=== PATIENT | female | born 1980 ===

== ENCOUNTER 2018-01-24 18:56 | Emergency (ER) | payer SELFPAY ==
[2018-01-24 18:57] VITALS: BMI 28.8
[2018-01-24 20:04] LABS: SQUAMOUS EPITHIAL 1 /hpf (0-5); URINE BACTERIA OCC (<OCC); URINE BILIRUBIN NEGATIVE (NEGATIVE); URINE CLARITY Clear (Clear); URINE COLOR Straw (YELLOW); URINE GLUCOSE (UA) NORMAL (Normal); URINE LEUKOCYTE ESTERASE NEG Leu/uL (Negative); URINE PROTEIN NEGATIVE (NEGATIVE); URINE UROBILINOGEN NORMAL mg/dL (0.2-1.0)
[2018-01-24 20:05] LABS: HCG,QUALITATIVE URINE POSITIVE (NEGATIVE)
[2018-01-24 20:11] LABS: URINE BLOOD TRACE-LYSED (NEGATIVE)
[2018-01-24] MEDS ORDERED: Sodium Chloride 0.9% 1,000 ML IV ONE (20:20)
--- NOTE | 2018-01-24 20:24 | C.PDOC ---
History Of Present Illness 37 year old female presents to the ED c/o abdominal pain for the past 3 days. Patient states her pain is mostly lower abdominal area. Patient denies fever, chills, nausea, vomit, diarrhea, dysuria, hematuria. Chief Complaint (Nursing): Abdominal Pain History Per: Patient History/Exam Limitations: no limitations Onset/Duration Of Symptoms: Days Current Symptoms Are (Timing): Still Present Location Of Pain/Discomfort: RLQ, LLQ Radiation Of Pain To:: None Quality Of Discomfort: "Pain" Associated Symptoms: denies: Nausea, Vomiting, Diarrhea, Loss Of Appetite, Urinary Symptoms Exacerbating Factors: None Alleviating Factors: None Recent travel outside of the [place]: No Additional History Per: Patient Abnormal Vaginal Bleeding: No Past Medical History Reviewed: Historical Data, Nursing Documentation, Vital Signs Vital Signs: Last Vital Signs Temp 98.5 F 01/24/18 19:09 Pulse 66 01/24/18 19:09 Resp 18 01/24/18 19:09 BP 117/71 01/24/18 19:09 Pulse Ox 100 01/24/18 19:09 - Medical History PMH: No Chronic Diseases Denies: Chronic Kidney Disease Surgical History: No Surg Hx Family History: States: Unknown Family Hx - Social History Hx Alcohol Use: No Hx Substance Use: No - Immunization History Hx Tetanus Toxoid Vaccination: No Hx Influenza Vaccination: No Hx Pneumococcal Vaccination: No Review Of Systems Constitutional: Negative for: Fever, Chills Cardiovascular: Negative for: Chest Pain Respiratory: Negative for: Shortness of Breath Gastrointestinal: Positive for: Abdominal Pain. Negative for: Nausea, Vomiting Genitourinary: Negative for: Dysuria, Hematuria Skin: Negative for: Rash Neurological: Negative for: Weakness, Numbness Physical Exam - Physical Exam Appears: Non-toxic, In Acute Distress (due to pain) Skin: Normal Color, Warm, Dry Head: Atraumatic, Normacephalic Eye(s): bilateral: Normal Inspection Neck: Normal ROM, Supple Chest: Symmetrical Cardiovascular: Rhythm Regular Respiratory: Normal Breath Sounds, No Rales, No Rhonchi, No Wheezing Gastrointestinal/Abdominal: Soft, Tenderness (B/L lower quadrant ), No Guarding, No Rebound Extremity: Normal ROM, No Tenderness, No Swelling Neurological/Psych: Oriented x3, Normal Speech, Normal Cognition Gait: Steady ED Course And Treatment - Laboratory Results Result Diagrams: 01/24/18 20:29 01/24/18 20:29 O2 Sat by Pulse Oximetry: 100 (ON RA) Pulse Ox Interpretation: Normal - CT Scan/US Pelvic US Other Rad Studies (CT/US): Read By Radiologist, Radiology Report Reviewed CT/US Interpretation: Clinical history: Pain. Findings: Real-time transabdominal and transvaginal ultrasound images of the pelvis were obtained. An anteverted uterus is noted, measuring 9.4 x 5.2 x 6.2 cm. The uterus demonstrates normal echotexture and echogenicity. The endometrial stripe measures 18 mm. There is a very small anechoic structure within the endometrial canal which could represent early intrauterine gestational sac. The mean sac diameter measures 0.64 cm. There is no evidence of a pole or yolk sac at t his time. There is no evidence of an intrauterine . The right ovary measures 3.2 x 2.3 x 2.2 cm. The left ovary measures 2.4 x 1.4 x 2.7 cm. No adnexal masses are seen. Color Doppler flow is seen within both ovaries. There is no evidence of free fluid. Impression: 1. Tiny sac like structure in the endometrial canal with a mean sac diameter of 0.64 cm. No discrete definitive pole or yolk sac is seen at this time. This could represent a very early intrauterine gestation. However, differential diagnosis still includes early , missed , or ectopic . Follow-up with serial serum beta hCG levels is recommended for further evaluation. . Electronically signed on Jan 25, 2018 12:12:38 AM EDT by: Edgar Perez M.D., Certified by ABR, MSK, Neuroradiology Medical Decision Making Medical Decision Making: Plan: * Labs * IV fluids * UA * Pelvic US Disposition Counseled Patient/Family Regarding: Diagnosis - Disposition Referrals: [facility] [Outside] Disposition: HOME/ ROUTINE Disposition Time: 00:16 Condition: STABLE Instructions: Round Ligament Pain, Medications and Forms: [facility] (Anguillan), Gen Discharge Inst Ukrainian Print Language: OCCITAN - POA Present On Arrival: None - Clinical Impression Clinical Impression: , Round ligament pain - Scribe Statement The provider has reviewed the documentation as recorded by the Scribe Braulio Goldstein All medical record entries made by the Scribe were at my direction and personally dictated by me. I have reviewed the chart and agree that the record accurately reflects my personal performance of the history, physical exam, medical decision making, and the department course for this patient. I have also personally directed, reviewed, and agree with the discharge instructions and disposition.
[2018-01-24 20:32] LABS: BASO % 0.3 % (0.0-2.0); EOS # 0.1 K/uL (0.0-0.7); EOS % 0.9 % (0.0-4.0); HEMOGLOBIN 12.7 g/dL (11.0-16.0); LYMPH # 1.2 K/uL (1.0-4.3); LYMPH % 19.5 % (20.0-40.0); MEAN CORPUSCULAR HEMOGLOBIN 30.3 pg (27.0-31.0); MEAN CORPUSCULAR HGB CONC 34.4 g/dL (33.0-37.0); MEAN PLATELET VOLUME 9.4 fL (7.2-11.7); MONO # 0.4 K/uL (0.0-0.8); MONO % 6.7 % (0.0-10.0); NEUT # 4.6 K/uL (1.8-7.0); NEUT % 72.6 % (50.0-75.0); RBC 4.18 Mil/uL (3.80-5.20); RED CELL DISTRIBUTION WIDTH 13.3 % (11.5-14.5); WHITE BLOOD COUNT 6.3 K/uL (4.8-10.8)
[2018-01-24 20:48] LABS: ALB/GLOB RATIO 1.6 (1.0-2.1); ALBUMIN 4.2 g/dL (3.5-5.0); ALT/SGPT 26 U/L (9-52); AST/SGOT 17 U/L (14-36); BLOOD UREA NITROGEN 9 mg/dL (7-17); CALCIUM 9.1 mg/dl (8.6-10.4); GFR NON-AFRICAN AMERICAN > 60; LIPASE 82 U/L (23-300)
[2018-01-25 01:08] VITALS: BP 126/82; PULSE 88; RESP 20; TEMP 98; O2SAT 97
--- NOTE | 2018-01-25 10:51 | US ---
Pelvic ultrasound HISTORY: Pelvic pain. Comparison: None available. Technique: Real-time sonography was performed through the pelvis utilizing transabdominal and transvaginal techniques. Findings: status pending. LMP of 12/18/2017. Estimated gestational age by LMP of 5 weeks and 2 days. Uterus: 9.4 x 5.2 x 6.2 centimeters. Heterogeneous echotexture. Anteverted. Endometrial thickness measures 1.8 centimeters. Very small anechoic structure within the endometrial canal. This is of uncertain clinical etiology and may represent an early intrauterine gestational sac. Mean sac diameter measures 0.64 centimeters. No evidence of a pole or yolk sac at this time. No free fluid in the pelvic cul-de-sac. Right ovary: 3.2 x 2.2 x 2.2 centimeters. Normal flow. Left ovary: 2.4 x 1.4 x 2.7 centimeters. Normal flow. Impression: Small sac-like structure in the endometrial canal with a mean sac diameter of 6.4 millimeters. No discrete definitive pole or yolk sac is seen at this time. In the setting of a positive test, this may represent an early intrauterine gestation. However, differential diagnosis still includes early versus missed versus ectopic . Follow-up with serial beta HCG levels is recommended for further evaluation. These findings were preliminarily reported at 12:12 a.m. on 01/25/[address] Edgar Perez from [employer].
== END 2018-01-25 00:45 | disposition home or self-care (01) ==
LOC: C.ER 18:56
DX: O26.891 Other specified pregnancy related conditions, first trimester (principal); Z3A.00 Weeks of gestation of pregnancy not specified; R10.2 Pelvic and perineal pain
CPT/HCPCS: 76830; 76856; 80053; 81001; 83690; 84702; 84703; 85025; 99282; J7030

== ENCOUNTER 2018-02-05 15:59 | Emergency (ER) | payer SELFPAY ==
[2018-02-05 15:59] VITALS: BMI 28.8
[2018-02-05 17:40] LABS: HCG,QUALITATIVE URINE POSITIVE (NEGATIVE)
--- NOTE | 2018-02-05 17:59 | C.PDOC ---
Addendum entered and electronically signed by Lia Bueno MD 02/05/18 20:38: Disposition Counseled Patient/Family Regarding: Studies Performed, Diagnosis, Need For Followup Clinical Impression: Threatened , Subchorionic hemorrhage Disposition: HOME/ ROUTINE Disposition Time: 19:00 Condition: FAIR Additional Instructions: Please return if symptoms recur Instructions: Threatened Miscarriage (DC) Referrals: [facility] [Outside] Stand Alone Forms: [employer] (Faroese) Original Note: History Of Present Illness 38 y/o female, 7-8 weeks , LMP: "in November", presents to ED for evaluation of vaginal spotting for the last 2 weeks. Pt states she developed lower abdominal cramping today. Pt was evaluated in the ED about 2 weeks ago for similar symptoms. Ultrasound at that time did not identify IUP. Notes she has not followed up with OBGYN since the previous visit. Denies any blood clots, notes she noticed spotting only when wiping. Otherwise, nausea, vomiting, back pain, urinary symptoms, or other vaginal discharge. <Princess Aguillon - Last Filed: 02/06/18 15:48> <Lia Beuno - Last Filed: 02/05/18 20:37> History Per: Patient History/Exam Limitations: no limitations Onset/Duration Of Symptoms: Days Current Symptoms Are (Timing): Still Present Location Of Pain/Discomfort: Suprapubic Radiation Of Pain To:: None Quality Of Discomfort: "Pain" Exacerbating Factors: None Recent travel outside of the [place]: No Additional History Per: Patient <Princess Aguillon - Last Filed: 02/06/18 15:48> Time Seen by Provider: 02/05/18 17:36 Chief Complaint (Nursing): Abdominal Pain Past Medical History Vital Signs: Last Vital Signs Temp 98.4 F 02/05/18 16:05 Pulse 60 02/05/18 16:05 Resp 18 02/05/18 16:05 BP 111/73 02/05/18 16:05 Pulse Ox 100 02/05/18 18:09 <Lia Bueno - Last Filed: 02/05/18 20:37> Reviewed: Historical Data, Nursing Documentation, Vital Signs Vital Signs: Last Vital Signs Temp 98.4 F 02/05/18 16:05 Pulse 60 02/05/18 16:05 Resp 18 02/05/18 16:05 BP 111/73 02/05/18 16:05 Pulse Ox 100 02/05/18 16:05 - Medical History PMH: Denies: Chronic Kidney Disease Family History: States: Unknown Family Hx - Social History Hx Alcohol Use: No Hx Substance Use: No - Immunization History Hx Tetanus Toxoid Vaccination: Yes Hx Influenza Vaccination: No Hx Pneumococcal Vaccination: No <Princess Aguillon - Last Filed: 02/06/18 15:48> Review Of Systems Except As Marked, All Systems Reviewed And Found Negative. Constitutional: Negative for: Fever, Chills Gastrointestinal: Positive for: Abdominal Pain. Negative for: Nausea, Vomiting, Diarrhea, Constipation Genitourinary: Positive for: Vaginal Bleeding (spotting). Negative for: Dysuria, Frequency, Hematuria, Vaginal Discharge Musculoskeletal: Negative for: Back Pain <Princess Aguillon - Last Filed: 02/06/18 15:48> Physical Exam - Physical Exam Appears: Non-toxic, No Acute Distress Skin: Normal Color, Warm, Dry Head: Atraumatic, Normacephalic Eye(s): bilateral: Normal Inspection Oral Mucosa: Moist Neck: Normal ROM, Supple Chest: Symmetrical Cardiovascular: Rhythm Regular, No Murmur Respiratory: Normal Breath Sounds, No Rales, No Rhonchi, No Wheezing Gastrointestinal/Abdominal: Soft, Tenderness (minimal suprapubic), No Guarding, No Rebound Back: No CVA Tenderness Extremity: Normal ROM, No Pedal Edema Neurological/Psych: Oriented x3, Normal Speech <Princess Aguillon - Last Filed: 02/06/18 15:48> ED Course And Treatment - Laboratory Results Result Diagrams: 02/05/18 18:01 Pulse Ox Interpretation: Normal Reevaluation Time: 20:34 Reassessment Condition: Improved <Lia Bueno - Last Filed: 02/05/18 20:37> - Laboratory Results Result Diagrams: 02/05/18 18:01 O2 Sat by Pulse Oximetry: 100 (RA) Pulse Ox Interpretation: Normal - CT Scan/US OB pelvic u/s Other Rad Studies (CT/US): Read By Radiologist CT/US Interpretation: Indication: with vaginal spotting. Comparison: Pelvis/transvaginal ultrasound performed 01/24/18. Technique: Real-time transabdominal pelvic ultrasound was performed. In addition a transvaginal pelvic ultrasound was necessary to better depict pelvic anatomy. Findings: Uterus measures approximately 9.6 x 6.0 x 6.4 cm. Anteverted. Cervix length measures approximately 2.7 cm. There is a single intrauterine fetus present. 4 mm yolk sac. The gestational sac measures 1.8 cm and is compatible with a gestational age of 6 weeks 1 day. The crown-rump length measures 0.7 cm and is compatible with a gestational age of 6 weeks 4 days. Small probable subchorionic hemorrhage measures approximately 1.3 x 0.5 x 1.6 cm anterior to the gestational sac. There is heart motion which measured 146.3 BPM. The right ovary measures 3.0 x 2.2 x 2.6 cm and contains 2.3 x 1.6 x 1.9 cm probable corpus luteal cyst. The left ovary measures 2.7 x 1.4 x 2.6 cm. Blood flow was demonstrated to both ovaries. Impression: Live single intrauterine with estimated gestational age 6 weeks 1 day by gestational sac calculation and 6 weeks 4 days by crown-rump length calculation. heart rate 146.3 bpm. Small subchorionic hemorrhage measures approximately 1.3 x 0.5 x 1.6 cm. Advise an anomaly screen at 16-18 weeks gestational age. Preliminary impression was provided by [employer]. <Princess Aguillon - Last Filed: 02/06/18 15:48> Medical Decision Making Medical Decision Making: Upon provider reevaluation patient is feeling better, is medically stable, and requires no further treatment in the ED at this time. Patient will be discharged home . Counseling was provided and all questions were answered regarding diagnosis and need for follow up with the referred clinic. There is agreement to discharge plan. Return if symptoms persist or worsen. copies of the blood work and US given <Lia Bueno - Last Filed: 02/05/18 20:37> Medical Decision Making: Plan: * Blood work * Urinalysis * OB transvag US <Princess Aguillon - Last Filed: 02/06/18 15:48> Disposition Counseled Patient/Family Regarding: Studies Performed, Diagnosis, Need For Fol lowup - Disposition Disposition Time: 19:00 <Lia Bueno - Last Filed: 02/05/18 20:37> <Princess Aguillon - Last Filed: 02/06/18 15:48> - Disposition Referrals: [facility] [Outside] Disposition: HOME/ ROUTINE Condition: FAIR Additional Instructions: Please return if symptoms recur Instructions: Threatened Miscarriage (DC) Forms: [employer] [facility] (Faroese) - Clinical Impression Clinical Impression: Threatened , Subchorionic hemorrhage - Scribe Statement The provider has reviewed the documentation as recorded by the Scribe KP All medical record entries made by the Scribe were at my direction and personally dictated by me. I have reviewed the chart and agree that the record accurately reflects my personal performance of the history, physical exam, medi ambika decision making, and the department course for this patient. I have also personally directed, reviewed, and agree with the discharge instructions and disposition. <Princess Aguillon - Last Filed: 02/06/18 15:48>
[2018-02-05 18:03] LABS: SQUAMOUS EPITHIAL 3 /hpf (0-5); URINE AMORPHOUS SEDIMENT RARE /ul (<OCC); URINE BILIRUBIN NEGATIVE (NEGATIVE); URINE BLOOD 2+ (NEGATIVE); URINE CLARITY Hazy (Clear); URINE COLOR Yellow (YELLOW); URINE GLUCOSE (UA) NORMAL (Normal); URINE LEUKOCYTE ESTERASE TRACE Leu/uL (Negative); URINE PROTEIN NEGATIVE (NEGATIVE); URINE UROBILINOGEN NORMAL mg/dL (0.2-1.0)
[2018-02-05 18:04] LABS: HEMOGLOBIN 13.5 g/dL (11.0-16.0); MEAN CELL VOLUME 88.9 fL (81.0-99.0); MEAN CORPUSCULAR HEMOGLOBIN 30.2 pg (27.0-31.0); MEAN PLATELET VOLUME 9.6 fL (7.2-11.7); RBC 4.46 Mil/uL (3.80-5.20); RED CELL DISTRIBUTION WIDTH 13.6 % (11.5-14.5); WHITE BLOOD COUNT 8.3 K/uL (4.8-10.8)
[2018-02-05 20:47] VITALS: BP 121/68; PULSE 78; RESP 20; TEMP 98.6
--- NOTE | 2018-02-06 11:03 | US ---
Indication: with vaginal spotting Comparison: Pelvis/transvaginal ultrasound performed 01/24/18 Technique: Real-time transabdominal pelvic ultrasound was performed. In addition a transvaginal pelvic ultrasound was necessary to better depict pelvic anatomy. Findings: Uterus measures approximately 9.6 x 6.0 x 6.4 cm. Anteverted. Cervix length measures approximately 2.7 cm. There is a single intrauterine fetus present. 4 mm yolk sac. The gestational sac measures 1.8 cm and is compatible with a gestational age of 6 weeks 1 day. The crown-rump length measures 0.7 cm and is compatible with a gestational age of 6 weeks 4 days. Small probable subchorionic hemorrhage measures approximately 1.3 x 0.5 x 1.6 cm anterior to the gestational sac. There is heart motion which measured 146.3 BPM. The right ovary measures 3.0 x 2.2 x 2.6 cm and contains 2.3 x 1.6 x 1.9 cm probable corpus luteal cyst. The left ovary measures 2.7 x 1.4 x 2.6 cm. Blood flow was demonstrated to both ovaries. Impression: Live single intrauterine with estimated gestational age 6 weeks 1 day by gestational sac calculation and 6 weeks 4 days by crown-rump length calculation. heart rate 146.3 bpm. Small subchorionic hemorrhage measures approximately 1.3 x 0.5 x 1.6 cm. Advise an anomaly screen at 16-18 weeks gestational age Preliminary impression was provided by [employer].
[2018-02-06 15:48] VITALS: O2SAT 100
== END 2018-02-05 20:47 | disposition home or self-care (01) ==
LOC: C.ER 15:59
DX: O20.0 Threatened abortion (principal); Z3A.08 8 weeks gestation of pregnancy

== ENCOUNTER 2018-05-04 11:42 | Outpatient (CLI) | payer SELFPAY | END 2018-05-04 11:43 | disposition home or self-care (01) | LOC: C.LAB 11:42 | DX: Z34.82 Encounter for supervision of other normal pregnancy, second trimester (principal) ==

== ENCOUNTER 2018-08-24 14:12 | Outpatient (CLI) | payer SELFPAY | END 2018-08-24 14:13 | disposition home or self-care (01) | LOC: C.LAB 14:12 | DX: Z34.00 Encounter for supervision of normal first pregnancy, unspecified trimester (principal) ==

== ENCOUNTER 2018-09-17 07:12 | Inpatient (IN) | payer MEDICAID, SELFPAY ==
[2018-09-17 07:43] VITALS: BMI 31.8
[2018-09-17] MEDS ORDERED: Clindamycin 300 MG in Sodium Chloride 0.9% 50 ML IVPB STA (07:48)
[2018-09-17 08:27] LABS: BASO % 0.1 % (0.0-2.0); EOS % 0.8 % (0.0-4.0); HEMOGLOBIN 12.4 g/dL (11.0-16.0); LYMPH # 0.9 K/uL (1.0-4.3); MEAN CELL VOLUME 86.5 fL (81.0-99.0); MEAN CORPUSCULAR HEMOGLOBIN 29.2 pg (27.0-31.0); MEAN CORPUSCULAR HGB CONC 33.8 g/dL (33.0-37.0); MEAN PLATELET VOLUME 9.9 fL (7.2-11.7); MONO # 0.6 K/uL (0.0-0.8); MONO % 9.1 % (0.0-10.0); NEUT # 4.7 K/uL (1.8-7.0); NRBC % 0.1 % (0.0-2.0); RBC 4.24 Mil/uL (3.80-5.20); RED CELL DISTRIBUTION WIDTH 15.4 % (11.5-14.5); WHITE BLOOD COUNT 6.2 K/uL (4.8-10.8)
[2018-09-17] MEDS ORDERED: Lactated Ringer's 1,000 ML IV ONE (08:30)
[2018-09-17] MEDS ORDERED: Sodium Citrate/Citric Acid 15 ml Sol PO ONE (08:30)
[2018-09-17 08:36] LABS: ALB/GLOB RATIO 1.2 (1.0-2.1); ALBUMIN 3.2 g/dL (3.5-5.0); ALT/SGPT 12 U/L (9-52); AST/SGOT 32 U/L (14-36); BLOOD UREA NITROGEN 11 mg/dL (7-17); CALCIUM 8.3 mg/dl (8.6-10.4); GFR NON-AFRICAN AMERICAN > 60
[2018-09-17] MEDS ORDERED: Sodium Citrate/Citric Acid 15 ml Sol ONE (08:38)
[2018-09-17] MEDS ORDERED: cefOXitin IV 2 gm in Dextrose 0 GM/0 ML BAG IVPB ONE (08:38)
[2018-09-17] MEDS ORDERED: Oxytocin 10 Units/ml Inj ONE (08:53)
[2018-09-17] MEDS ORDERED: Oxytocin 20 units in LR 2,000 ML IV ONE (08:56)
[2018-09-17 09:02] LABS: SQUAMOUS EPITHIAL 5 /hpf (0-5); URINE BACTERIA RARE (<OCC); URINE BILIRUBIN NEGATIVE (NEGATIVE); URINE BLOOD NEGATIVE (NEGATIVE); URINE CLARITY Hazy (Clear); URINE COLOR Yellow (YELLOW); URINE GLUCOSE (UA) NORMAL (Normal); URINE LEUKOCYTE ESTERASE TRACE Leu/uL (Negative); URINE PROTEIN NEGATIVE (NEGATIVE); URINE UROBILINOGEN NORMAL mg/dL (0.2-1.0)
[2018-09-17] MEDS ORDERED: ePHEDrine 50 mg/ml Inj ONE ×2 (10:55→11:17)
[2018-09-17] MEDS ORDERED: Morphine 1 mg/ml preservative-free Inj(Duramorph) ONE (10:56)
--- NOTE | 2018-09-17 13:25 | PCM.SURG1 ---
Surgeon's Initial Post Op Note - Surgeon's Notes Surgeon: Juanita Borjas MD Network Systems Analyst: Chucky Carter MD. MS-3: Dwain Sexton Type of Anesthesia: Spinal Anesthesia Administered By: Ama Rose MD Pre-Operative Diagnosis: Breech presentation; Grand multiparity; Advanced maternal age; desires permanent sterilization Operative Findings: Live female , Kyle breech presentation, LSA position, 8lb 11oz, 's 9/9. Cord pH (venous) 7.23, base XS -2.4. Normal uterus, normal ovaries and fallopian tubes, bilaterally Post-Operative Diagnosis: Same; S/P permanent sterilization Operation Performed: Primary C/S; bilateral salpingectomy (complete) Specimen/Specimens Removed: Right and left fallopian tubes Estimated Blood Loss: EBL {In ML}: 800 (U.O. 800 mL; IVFs 2,000 mL. Pitocin 40 units in 1st Litre) Blood Products Given: N/A Drains Used: No Drains Post-Op Condition: Good Date of Surgery/Procedure: 09/17/18 Time of Surgery/Procedure: 13:27
[2018-09-17] MEDS ORDERED: Oxycodone/Acetaminophen 5/325 mg Tab PO PRN (16:42)
--- NOTE | 2018-09-17 17:12 | OBDS ---
DELIVERY PERSONNEL Delivery Doctor: Maggie Borjas MD Scrub Nurse: Devi Pérez Dietitian Consultant: Ashleigh Cazares RN Anesthesiologist: Alejandro Rose MD Resident: Gerald Sexton MATERNAL INFORMATION Delivery Anesthesia: Spinal Medications in Delivery: pitocin 20 units in 1000 mls of LR+40 units added by anesthesia Estimated Blood Loss (ml): 800 Maternal Complications: None RN Comments: unveventful delivery of 38.3 weeks IUP in confirmed breech presentation, via primary c/ s, to a viable baby girl with apgars 9-9. surgicel original also used during procedure Provider Comments: Uneventful primary LTCS with Breech extraction, for Kyle Breech delivery; live f emale , LSA position. Grossly normal placenta; 3 vessel cord Bilateral complete salpingectomy performed for permanent sterilizaiton. Routine abdominal closure Hemostasis assured. Skin reapporoximated with 4-0 monocryl in subcuticular fashion. patient tolerated procedure well Taken back to LDR#2 in stable condition EBL 800mL U.O. 800 mL IVFs 2,000 mL LABOR SUMMARY EDC: 09/28/2018 00:00 No. Babies in Womb: 1 Attempted: No Labor Anesthesia: Intrathecal LABOR INFORMATION Reason for Induction: Not Applicable Oxytocin: N/A Group B Beta Strep: Negative Steroids Given: None Reason Steroids Not Administered: Not Applicable MEMBRANES Membranes Rupture Method: Artificial Rupture of Membranes: 09/17/2018 11:27 Length of Rupture (hrs): 0.02 Amniotic Fluid Color: Clear Amniotic Fluid Amount: Moderate Amniotic Fluid Odor: Normal STAGES OF LABOR Stage 3 hrs: 0 Stage 3 min: 1 BABY A INFORMATION Infant Delivery Date/Time: 09/17/2018 11:28 Method of Delivery: Born in Route : No : N/A Forceps: N/A Vacuum Extraction: N/A Shoulder Dystocia : No SHOULDER DYSTOCIA BABY A Infant Delivery Date/Time: 09/17/2018 11:28 PRESENTATION/POSITION BABY A Presentation: Breech Cephalic Presentation: N/A Vertex Position: n/a Breech Presentation: Kyle LSA PLACENTA INFORMATION BABY A Placenta Delivery Time : 09/17/2018 11:29 Placenta Method of Delivery: Manual Removal Placenta Status: Delivered SCORES BABY A Heart Rate 1 min: >100 bpm Resp Effort 1 min: Good Cry Reflex Irritability 1 min: Cough or Sneeze or Pulls Away Muscle Tone 1 min: Active Motion Color 1 min: Body Warba, Extremities Blue Resuscitation Effort 1 min: Tactile Stimulation SCORE 1 MIN: 9 Heart Rate 5 min: >100 bpm Resp Effort 5 min: Good Cry Reflex Irritability 5 min: Cough or Sneeze or Pulls Away Muscle Tone 5 min: Active Motion Color 5 min: Body Warba, Extremities Blue Resuscitation Effort 5 min: N/A SCORE 5 MIN: 9 INFORMATION BABY A Gestational Age at Delivery: 38.3 Gestational Status: Term Infant Outcome : Liveborn Condition : Stable Sex: Female IDENTIFICATION/MEDS BABY A ID Band Number: [id number] ID Band Location: Left Leg; Left Arm Sensor Applied: Yes Sensor Number: [id number] Sensor Location : Cord Clamp WEIGHT/LENGTH BABY A Infant Birthweight (gms): 3930 Weight (lb): 8 Weight (oz): 11 Infant Length Inches: 19.75 Infant Length cms: 50.2 CORD INFORMATION BABY A No. Cord Vessels: 3 Nuchal Cord : Around Neck x1, Loose Nuchal Cord Other: n/a Cord pH Baby Arterial: 7.30 Infant Cord pH Baby Venous: 7.23 Cord Blood Taken: Yes Infant Suction: Mouth; Nose
[2018-09-17] MEDS: Simethicone 80 mg Chewtab PO SCH ×2 (18:03→22:45)
--- NOTE | 2018-09-17 21:26 | OBADHP ---
Datetime: 09/17/2018 08:20 Admit Comment, IP Provider: Patient is a 38 year old female at 39wks gestation with ULISSES 09/24 BY 12 weeks and 5 days US (03/17/2018) and LMP (12/18/18), presenting for scheduled due to breech presentation. Her last doctor visit was 3 days ago, which is when she was told to go to the hospital for . She states she feels movement, has minor cramping pain, and started fe eling occasional contractions 1 month ago, which are now 3-4 times a day. She has complaints of spott ing of "white liquid". She urinates 3-4 times a day and has 5-6 bottles of water a day. She states sh e had vaginal bleeding in the first 3 months of gestation, for which she was seen in [facility] twice. She denies any vaginal bleeding and leakage of fluid currently, and denies any other complicat ions during the course. Of note, [place] the [place] [facility] about 3 years ago. OBHx: 5 other children, all female, by G1: Female , , 8.5lbs, 09/18/1995, complications G2: Female , , 7.5lbs, 03/03/1997, complications G3: Female , , 9lBS, 07/09/1999, complications G4: Female , , 8lbs, 06/26/2001, complications G5: Female , , 9lbs, 09/08/2003, complications G6: Current, no complications - 5 other children were born in [facility] - oldest child 23y.o and youngest is 15y.o. - smallest weight was 8lb 2oz, largest was 9lb - denies any complications with previous pregnancies - denies history of blood transfusion GynHx: - Menarche at 11y.o. - regular intervals, duration of 5 days - reports history of bilateral ovarian cysts, diagnosed in [facility] - pap smears normal - denies STI PMHx: denies PSHx: denies FHx: denies; father All: PCN (rash) Meds: PNV Social Hx: Unemployed, and lives with family, denies smoking/alcohol/drugs. VS: WNl PE: See comments A/P: Patient is a 38 year old at 39wks gestation with ULISSES 09/24/18 BY 12 weeks and 5 days U S (03/17/2018) and LMP (12/18/18), presenting for scheduled due to breech presentation: 1. Admit to unit 2. Stable, Afebrile 3. See admission orders 4. H/H stable 5. LR @ 125cc/hr 6. CEFM and TOCO 7. Anesthesia consult; epidural 8. Anticipate vaginal delivery All plans and management discussed with Dr. Indio Michaels DO, PGY-2 Attending Note: Patient was seen, evaluated and examined by me with the Resident. I agree with the above as documenetd. Very limited bedside ultrasound performed - Breech presentation was confirmed. Informed consent for the anticipated procedures including permanent sterilization were obtained. Lyndsey ent expresesd an understanding; no quesitons were offered. Consents were signed, dated, witnessed and placed in the chart. Steriization was affirmed with the understanding that the procedure to be perfo rmed was the complete removal of both fallopian tubes, meaning that she could not conceive naturally in the future. Plan: 1) As above. 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 Extremities - PN: Normal Abdomen - PN: Normal Back - PN: Normal Breast - PN: Not Done Lungs - PN: Normal Heart - PN: Normal Thyroid - PN: Not Done Neurologic - PN: Normal HEENT - PN: Normal General - PN: Normal Presentation-Admit: Vertex FHR - Baseline A Provider: 150 Contraction Comments Provider: none Comments, ACOG Physical Exam: Gen: NAD Cardio: RRR, +S1, +S2, no murmurs Pulm: CTA bilaterally Abdomen: Soft, non-tender, fundal height (38.6cm) Ext: No edema, no cyanosis EFM: 150, + accels TOCO: Irritability Gestation - Est Wks by US: 38.8 Vital Signs Provider: Reviewed; Within Normal Limits IP Chief Complaint: Scheduled Section NICHD Variability Prov Fetus A: Moderate 6-25bpm NICHD Accel Fetus A IP Provider: [id number] FHR Category Provider Fetus A: Category I NICHD Decel Fetus A IP Provider: None Genitourinary Exam: Not Done EGA AdmitDate IP: 38.3 IP Adm Impression: Term, intrauterine IP Admit Plan: Admit to unit; Initiate Section protocol
[2018-09-17] MEDS: Docusate-Senna 50 mg-8.6 mg Tab PO SCH (22:46)
--- NOTE | 2018-09-18 04:39 | OP ---
PROCEDURE DATE: 09/17/2018 SURGEON: Juanita Borjas MD FIRE [employer]OTECTION EQUIPMENT TECHNICIAN: Chucky Carter MD SECOND SPORTS DIRECTOR: Dwain Joe MS3 ANESTHESIOLOGIST: Ama Rose MD PREOPERATIVE DIAGNOSES: A 39 weeks' gestation, breech presentation, grand multiparity, and advanced maternal age. POSTOPERATIVE DIAGNOSES: A 39 weeks' gestation, breech presentation, grand multiparity, and advanced maternal age PROCEDURES PERFORMED: Primary low transverse section and bilateral complete total salpingectomy. FINDINGS: Live female infant, Kyle breech presentation with a left sacrum anterior and a loose nuchal cord x1. Infant's weight was 8 pounds 11 ounces and cord pH was 7.23. Normal uterus; normal fallopian tubes and ovaries, bilaterally. OPERATION(S) PERFORMED: Repeat transverse lower uterine segment Caesarean section. Bilateral total salpingectomy ESTIMATED BLOOD LOSS: 800 mL. URINE OUTPUT: 800 mL. INTRAVENOUS FLUIDS: 2000 mL of lactated Ringer's in total, the first 1000 mL had 40 units of Pitocin. COMPLICATIONS: None. SPECIMENS: Right and left fallopian tubes DESCRIPTION OF PROCEDURE: The patient was taken to the operating room after having obtained informed consent for the anticipated procedure. This included a discussion of possible risks and complications, including but not limited to infection requiring antibiotics, hemorrhage requiring blood transfusion, repair of any damage to internal organs, and possible Caesarean hysterectomy. The patient reaffirmed her desire for permanent sterilization as the sterilization consent was reevaluated. She understood that this was a complete removal of both tubes and there would be no possibility for conceiving again in the future. The patient agreed. All consent forms were signed, dated, witnessed, and placed in the chart. The patient received clindamycin 900 mg intravenous and she was then transferred to the operating room. Once in the operating room, she was placed on the operating room table in a sitting position where spinal anesthesia was administered without incident. A Alvarenga catheter was then inserted under sterile condition. The patient was subsequently prepped and she was draped in the usual sterile fashion. After assuring an adequate level of anesthesia, using a scalpel, a Pfannenstiel incision was made on the skin. The incision was carried down through the subcutaneous tissue using the Bovie electrocautery. The rectus muscle was identified and dissected off the overlying fascia. The rectus muscle was then in the midline and the peritoneum was entered by blunt dissection. The vesicouterine reflection was identified and the bladder flap was created. Using a scalpel, a transverse incision was made on the uterus in the lower uterine segment. Amniotomy was performed and a copious amount of clear amniotic fluid was noted. Routine breech extraction was performed and a safe and atraumatic delivery of the occurred, with the findings as above. Once on the operative field, the infant's mouth and nose were bulb suctioned as the umbilical cord was doubly clamped and cut. The was handed off the operative field to the social organization professor in attendance. A segment of the cord was obtained for cord pH analysis, results as above. The placenta was then delivered, it was grossly intact. There were three vessels present in the cord. The uterus was exteriorized for closure. This was done in two layers using 0 Vicryl, the first layer was in a running interlocking fashion and the second layer was in a horizontal imbricating fashion. Attention was then directed to the pelvic viscera - findings as described above. Attention was then directed to the right fallopian tube. Using a Edith clamp, the mesosalpinx was grasped initially at the fimbriated end. Using the LigaSure, complete resection of the right fallopian tube was performed. The specimen was handed off the operative field. Hemostasis was assured. A similar procedure was performed on the left fallopian tube. Again, hemostasis was assured after the specimen was handed off the operative field. Attention was then redirected to the uterine incision and using 0 Monocryl [id number] suture was placed to assure hemostasis. Surgicel was placed along the uterine incision line and the bladder flap was reapproximated using 2-0 chromic in a running fashion. Copious irrigation was performed of the posterior aspect of the uterus. The uterus was then returned to the abdominal cavity. The paracolic gutters were cleared of all debris, again assuring adequate hemostasis at the mesosalpinx, at which point bilateral salpingectomy had been performed and this was assured. The parietal peritoneum was reapproximated using 2-0 chromic in a running fashion. The rectus muscle was reapproximated in midline also using 2-0 chromic in a running fashion. The fascia was reapproximated using 1-0 Vicryl in a running fashion in two halves. The subcutaneous tissue was reapproximated using plain catgut in a running fashion. The skin was reapproximated using 4-0 Monocryl in a subcuticular fashion. Steri-Strips were applied and a pressure dressing was applied. The patient was then repositioned in a frog-leg manner. Uterine evacuation was performed and the uterus was emptied of additional clots and debris. It was firm and contracted at the level of the umbilicus. The patient was then subsequently transferred back to [facility]. The infant had been transferred to the well baby nursery. Both, the patient and were in stable condition. Dr. Chucky Carter was present throughout the entire procedure from beginning to end. His presence was necessary for his expertise in assuring adequate visualization of the operative field at all times, the safe and atraumatic delivery of the baby and assuring adequate hemostasis throughout. Juanita Borjas MD MTDD
[2018-09-18 08:12] LABS: HEMOGLOBIN 11.2 g/dL (11.0-16.0); MEAN CELL VOLUME 85.5 fL (81.0-99.0); MEAN CORPUSCULAR HEMOGLOBIN 29.8 pg (27.0-31.0); MEAN CORPUSCULAR HGB CONC 34.9 g/dL (33.0-37.0); MEAN PLATELET VOLUME 10.3 fL (7.2-11.7); RBC 3.74 Mil/uL (3.80-5.20)
[2018-09-18 08:16] LABS: WHITE BLOOD COUNT 9.9 K/uL (4.8-10.8)
--- NOTE | 2018-09-18 10:07 | OBPPN ---
Datetime: 09/18/2018 10:03 PP Pain Prov: Within normal limits PP Nausea Prov: Denies PP Flatus Prov: No PP BM Prov: No PP Breasts Prov: Normal PP Abdomen/Uterus Prov: Normal PP Lochia Prov: Normal PP Comments Phys Exam Prov: Abd: incision clean/dry/intact fundus firm PP Impression Prov: Normal progression PP Plan Prov: Continue present management PP Progress Note Prov: A/P: s/p C/S +BTL- Breech presentation PPD#1 EBL: 800cc stable and afebrile labs reviewed - WNL Encourage ISS/ambulation Colace/Dulcolax PRN constipation Continue post op care IP PP Procedures: None Vital Signs Provider PP: Reviewed
[2018-09-18] MEDS: Simethicone 80 mg Chewtab PO SCH ×4 (10:24→22:41)
[2018-09-18] MEDS: Prenatal Multivit/Folic Acid/Iron Tab PO SCH (10:24)
[2018-09-18] MEDS: Oxycodone/Acetaminophen 5/325 mg Tab PO PRN ×3 (10:27→22:42)
[2018-09-18] MEDS: Docusate-Senna 50 mg-8.6 mg Tab PO SCH (22:40)
[2018-09-19] MEDS: Oxycodone/Acetaminophen 5/325 mg Tab PO PRN (04:55)
--- NOTE | 2018-09-19 08:02 | OBPPN ---
Datetime: 09/19/2018 08:00 PP Pain Prov: Within normal limits PP Lochia Prov: Normal PP C/S Incision Prov: Normal PP Impression Prov: Normal progression PP Plan Prov: Continue present management PP Progress Note Prov: A/P: s/p C/S POD #2 - stable, afebrile - + breast/bottle - + flatus - continue post op care Vital Signs Provider PP: Reviewed; Within Normal Limits
[2018-09-19 09:02] LABS: HEMOGLOBIN 11.2 g/dL (11.0-16.0); MEAN CELL VOLUME 86.5 fL (81.0-99.0); MEAN CORPUSCULAR HEMOGLOBIN 29.7 pg (27.0-31.0); MEAN CORPUSCULAR HGB CONC 34.4 g/dL (33.0-37.0); MEAN PLATELET VOLUME 10.5 fL (7.2-11.7); RBC 3.76 Mil/uL (3.80-5.20); WHITE BLOOD COUNT 10.3 K/uL (4.8-10.8)
[2018-09-19] MEDS: Simethicone 80 mg Chewtab PO SCH ×4 (10:32→22:27)
[2018-09-19] MEDS: Prenatal Multivit/Folic Acid/Iron Tab PO SCH (10:32)
[2018-09-19] MEDS: Docusate-Senna 50 mg-8.6 mg Tab PO SCH (22:27)
[2018-09-20 09:28] VITALS: BP 103/67; PULSE 70; RESP 18; O2SAT 98
[2018-09-20] MEDS: Prenatal Multivit/Folic Acid/Iron Tab PO SCH (09:57)
[2018-09-20] MEDS: Simethicone 80 mg Chewtab PO SCH (09:57)
--- NOTE | 2018-09-20 12:45 | OBDCSUM ---
Datetime: 09/20/2018 10:23 Discharged to, Provider: Home Follow up at, Provider: cody Sanchez Instr Activity: Normal activity Disch Instr Diet: Regular Discharge Instructions, Provider: Routine instructions given Discharge Diagnosis, Provider: Term Delivered Discharge Time: 09/20/2018 13:00 Follow up in weeks, Provider: 09-24-18 Disch Referrals: None Contraception discussed, Prov: No Disch Activity Restrictions: No lifting; Minimize stair-climbing; No sexual activity; Nothing in vag cecilio - Hunter, tampons, douche Discharge Diagnosis Prov Other: Grand multiparity Breech presentation Status post primary section Status post permanent sterilization Advanced maternal age
[2018-09-20 18:20] VITALS: TEMP 98
== END 2018-09-20 14:20 | disposition home or self-care (01) | DRG 540 ==
LOC: C.EROB 07:12 → C.4D 07:49 → C.4M 15:30
PROVIDERS: ADMIT Obstetrics & Gynecology; ATTEND Obstetrics & Gynecology
PROC: 0UT70ZZ Resection of Bilateral Fallopian Tubes, Open Approach (ICD-10-PCS; principal; 2018-09-17)
PROC: 10D00Z1 Extraction of Products of Conception, Low, Open Approach (ICD-10-PCS; 2018-09-17)
DX: O32.1XX0 Maternal care for breech presentation, not applicable or unspecified (principal); O69.81X0 Labor and delivery complicated by cord around neck, without compression, not applicable or unspecified; L27.0 Generalized skin eruption due to drugs and medicaments taken internally; Z30.2 Encounter for sterilization; Z3A.39 39 weeks gestation of pregnancy; Z37.0 Single live birth